=== PATIENT | male | born 2005 | race Caucasian/White ===

== ENCOUNTER 2023-12-20 20:30 | Emergency (ER) | payer OTHER, SELFPAY ==
[2023-12-20 21:03] VITALS: BP 129/72; PULSE 90; RESP 16; TEMP 36.6; O2SAT 96
--- NOTE | 2023-12-20 21:03 | ECG_ITS ---
SEE SCANNED COPY FOR CONFIRMED REPORT MTDD
[2023-12-20 21:13] LABS: Basophils Percent Auto 0.6 % (0.2-1.2); Eosinophils Absolute Auto 0.3 K/mm3 (0-0.3); Eosinophils Percent Auto 3.7 % (0-4.4); Hemoglobin 16.3 g/dL (14.0-18.0); Immature Granulocyte Absolute 0.02 K/mm3 (0.00-0.031); Immature Granulocyte Percent A 0.3 % (0-0.5); Immature Platelet Fraction Pct 30.8 % (0.9-11.2); Lymphocytes Percent Auto 32.5 % (18.3-44.2); Mean Corpuscular Hemoglobin 29.9 pg (26-34); Mean Corpuscular Volume 80.6 fl (80-100); Monocytes Absolute Auto 0.5 K/mm3 (0.1-0.6); Monocytes Percent Auto 7.2 % (2.6-8.5); Neutrophils Absolute Auto 3.8 K/mm3 (1.3-6.7); Neutrophils Percent Auto 55.7 % (45.5-73.1); Platelet Count Result 122 k/mm3 (150-375); Red Blood Count 5.46 M/mm3 (4.6-6.20); Red Cell Distribution Width 11.7 % (11.5-14.5); White Blood Count 6.8 K/mm3 (4.5-10.0)
[2023-12-20 21:37] LABS: Alanine Aminotransferase 27 U/L (6-50); Albumin Level 4.8 g/dL (3.5-5.1); Alkaline Phosphatase 206 U/L (38-126); Anion Gap 15 mmol/L (4-12); Aspartate Amino Transferase 23 U/L (17-59); Bilirubin,Total 0.8 mg/dL (0.2-1.3); Blood Urea Nitrogen 25 mg/dL (9-20); Calcium 9.1 mg/dL (8.4-10.2); Carbon Dioxide 19 mmol/L (22-30); Chloride 90 mmol/L (98-107); Estimated CRCL calculation 119 ml/min; Estimated Glomerular Filt Rate > 60; Glucose 821 mg/dL (65-110); Potassium 4.5 mmol/L (3.4-5.0); Sodium 124 mmol/L (137-145)
[2023-12-20 21:53] LABS: Beta-Hydroxybutyrate/Acetoacetate 2.46 mmol/L (0.02-0.27)
[2023-12-20 22:10] LABS: Fractional Inspired Oxygen 21 %; HCO3 VBG 23.2 mEq/l (24.0-30.0); PCO2 VBG 38.5 mmHg (42.0-48.0); PO2 VBG 73.7 mmHg (35.0-45.0); pH VBG 7.398 (7.300-7.400)
[2023-12-20 22:11] LABS: Device ROOM AIR
[2023-12-20] MEDS: SODIUM CHLORIDE 0.9% IV 3,000 ML 999 ML IV CONT (22:18)
[2023-12-20 22:19] LABS: Hemoglobin A1C 11.4 % (<5.7)
[2023-12-20 22:39] LABS: Appearance Urine Clear (Clear); Bilirubin Urine Negative (Negative); Blood Urine Negative (Negative); Color Urine Yellow (Yellow); Glucose Urine UA 3+ mg/dL (Negative); Ketones Urine 2+ mg/dL (Negative); Leukocyte Esterase Ur Negative LEU/UL (Negative); Nitrate Urine Negative (Negative); Protein Urine Negative (Negative); Urobilinogen Urine 0.2 mg/dL (<2.0); pH Urine 5.5 (5.0-9.0)
[2023-12-20 22:44] LABS: Add Urine Microscopic? NO; Specific Grav Ur 1.031 (1.001-1.035)
[2023-12-20 23:05] VITALS: PULSE 84
[2023-12-20 23:06] VITALS: BP 161/99; PULSE 86; RESP 22; O2SAT 96
[2023-12-20 23:14] LABS: Influenza A QL RT-PCR Negative (Negative); Influenza B QL RT-PCR Negative (Negative); RSV RNA, RT-PCR Negative (Negative); SARS-CoV-2 RNA PCR Negative (Negative)
[2023-12-20 23:22] VITALS: BP 118/87; BP 153/98; PULSE 102; PULSE 74
[2023-12-20 23:23] VITALS: BP 131/77; PULSE 69
[2023-12-21 00:22] VITALS: BP 143/81; PULSE 84; RESP 16; O2SAT 100
[2023-12-21 00:31] LABS: Anion Gap 9 mmol/L (4-12); Blood Urea Nitrogen 20 mg/dL (9-20); Carbon Dioxide 20 mmol/L (22-30); Chloride 100 mmol/L (98-107); Estimated CRCL calculation 132 ml/min; Estimated Glomerular Filt Rate > 60; Glucose 532 mg/dL (65-110); Potassium 4.3 mmol/L (3.4-5.0); Sodium 129 mmol/L (137-145)
--- NOTE | 2023-12-21 00:42 | ED.GENADULT ---
HPI - General Adult General Chief complaint: Dizziness Stated complaint: LIGHTHEADED Time Seen by Provider: 12/20/23 21:48 History of Present Illness HPI narrative: This is a 18-year-old male presenting for dizziness lightheaded. Patient notes that he has had increased thirst and increased urination lately. He has also been losing weight. He has been told that that might be a sign of diabetes. When he got dizzy work he then came to the hospital for re-evaluation. Patient has no history of diabetes. No fever chills chest pain difficulty breathing abdominal pain or urinary symptoms. Related Data Allergies Allergy/AdvReac Type Severity Reaction Status Date / Time No Known Allergies Allergy Verified 12/20/23 22:48 Exam Narrative: APPEARANCE: No apparent distress. Head: atraumatic. EYES: EOMI, NOSE: Atraumatic NECK: Trachea midline RESPIRATORY: No increased rate of breathing CTAB CARDIOVASCULAR: RRR, no peripheral edema ABDOMINAL: Non-distended soft nontender MUSCULOSKELETAl: No obvious deformities NEURO: Alert. Moving 4/4 extremities SKIN:: Warm, dry. Normal color PSYCHIATRIC: Normal affect Course Vital Signs Vital signs: Vital Signs Temperature 97.8 F 12/20/23 21:03 Pulse Rate 90 12/20/23 21:03 Respiratory Rate 16 12/20/23 21:03 Blood Pressure 129/72 12/20/23 21:03 Pulse Oximetry 96 12/20/23 21:03 Oxygen Delivery Room Air 12/20/23 21:03 Temperature 97.8 F 12/20/23 21:03 Pulse Rate 84 12/21/23 00:22 Respiratory Rate 16 12/21/23 00:22 Blood Pressure 143/81 H 12/21/23 00:22 Pulse Oximetry 100 12/21/23 00:22 Oxygen Delivery Room Air 12/20/23 21:03 Medical Decision Making MDM Narrative Medical decision making narrative: -Course: 18-year-old male presenting with elevated glucose. VBG was with normal limits. Initial lab work showed a very slight acidosis and gap of 15. Patient was given 3 L of fluid and his labs were repeated with complete normalization of his anion gap. Patient is very well-appearing has no evidence of DKA/HHS at this time. Discussed admission versus discharge and patient declined admission. The patient is comfortable being discharged to see his primary care physician for which she has an appointment early next week. Patient given return precautions. -DDX includes but is not limited to: Hypoglycemia diabetes, DKA /HHS -Independent interpretation of studies: initial metabolic panel showed a bicarb of 19 and anion gap of 15. Anion gap resolved with 3 L of fluid. Bicarb was 20. Pseudohyponatremia due to elevated glucose. Glucose went from 800->500. Hemoglobin A1c is 11.4. Urine with +3 glucose. Viral swabs negative. -Interventions:3 L ns -Shared decision making / Disposition: discharged. -RX metformin 500 mg b.i.d. Vital Signs Vital Signs: Vital Signs Temperature 97.8 F 12/20/23 21:03 Pulse Rate 90 12/20/23 21:03 Respiratory Rate 16 12/20/23 21:03 Blood Pressure 129/72 12/20/23 21:03 Pulse Oximetry 96 12/20/23 21:03 Oxygen Delivery Room Air 12/20/23 21:03 Temperature 97.8 F 12/20/23 21:03 Pulse Rate 84 12/21/23 00:22 Respiratory Rate 16 12/21/23 00:22 Blood Pressure 143/81 H 12/21/23 00:22 Pulse Oximetry 100 12/21/23 00:22 Oxygen Delivery Room Air 12/20/23 21:03 Lab Data 12/20/23 21:05 12/21/23 00:11 Labs: Lab Results 12/20/23 12/20/23 12/21/23 Range/Units 21:05 22:18 00:11 WBC 6.8 (4.5-10.0) K/mm3 RBC 5.46 (4.6-6.20) M/mm3 Hgb 16.3 (14.0-18.0) g/dL Hct 44.0 (42.0-52.0) % MCV 80.6 (80-100) fl MCH 29.9 (26-34) pg MCHC 37.0 H (32-36) g/dl RDW 11.7 (11.5-14.5) % Plt Count 122 L (150-375) k/mm3 MPV 14.0 H (7.4-10.4) fl Immature Gran % (Auto) 0.3 (0-0.5) % Neut % (Auto) 55.7 (45.5-73.1) % Lymph % (Auto) 32.5 (18.3-44.2) % [place] % (Auto) 7.2 (2.6-8.5) % Eos % (Auto) 3.7
== END 2023-12-21 01:04 | disposition home or self-care (01) ==
PROVIDERS: Emergency Provider Emergency Medicine
DX: E11.65 Type 2 diabetes mellitus with hyperglycemia (principal); Z20.822 Contact with and (suspected) exposure to COVID-19
CPT/HCPCS: 36415; 80048; 80053; 81003; 82010; 82803; 83036; 85025; 85055; 87040; 87637; 93005; 96360; 96361; 99284; J7030

== ENCOUNTER 2024-11-18 01:22 | Emergency (ER) | payer OTHER, SELFPAY ==
[2024-11-18 01:23] VITALS: BP 131/92; PULSE 98; RESP 16; TEMP 36.5; O2SAT 99
--- OUTSIDE RECORDS SUMMARY | 2024-11-18 01:25 | XMS_ITS ---
Author Organization [facility] Address [address] [address] Care Team Providers Care Assistant Track Coach Name Role Phone Cash Ambriz Primary Care Provider Rishi Ag Unavailable [phone] Encounters Encounter Location Date Provider Diagnosis [place] [address] [place] [address] 05/09/2024 Rishi Massey Plan Of Treatment No Information Progress Notes * ZACH BAUERYURIOB:2005 ([age] yo M)Acc No.[id number]:05/09/2024 Patient: LEONOR GRAJEDA Provider: Alyx Massey MD :2005 A ge:18 Y S ex:Male Date:05/09/2024 Address:[address] [id number] Pcp:Cash Ambriz Subjective: * Chief Complaints: * Objective: * Vitals: Assessment: Plan: * Treatment: * Billing Information: * Visit Code: * Procedure Codes: * Electronic signature of Naresh Massey MD on 11/18/2024 at 01:24 AM CDT Sign off status: Pending * Provider: Alyx Massey MD Date: Generated for Jazlyn valladares/Tye/Marisol on: 11/18/2024 01:24 AM CDT
--- OUTSIDE RECORDS SUMMARY | 2024-11-18 01:25 | XMS_ITS | Clinical Summary ---
Author Organization [facility] Address [address] [place] [id number] Care Team Providers Care Installation Tech Name Role Phone Brenda Dangelo MD Primary Care Provider [phone] Allergies No known active allergies Medications No known medications Immunizations Immunization Administration Dates Next Due Dtap (Generic) 03/18/2007, 5,12/01/2004,07/04/2004,03/24 HPV4 (Gardasil) 02/05/2015 Hepatitis A (Generic) 01/02/2008,11/16/2006 Hepatitis B (Generic Peds) 12/01/2006,07/04/2004 ,03/24/2004 MMR (Generic) 01/02/2008,11/16/2006 Meningococcal (Menactra) 11/18/2021,02/05/2015 Pneumococcal (Prevnar 7) 03/18/2007,12/01/2004,1 2003,03/24/2004 Polio Ipv (Generic) 01/02/2008,12/01/2004,2003 Tdap (Generic) 02/05/2015 Varicella (Generic) 02/23/2009,11/29/2004 Social History Tobacco Use Types Packs/Day Years Used Date Smoking Tobacco: Never Smokeless Tobacco: Never Alcohol Use Standard Drinks/Week Comments Never 0 (1 standard drink = 0.6 oz pur e alcohol) PHQ-2 Answer Date Recorded PHQ-2 Score - If the patient scores above 3, please move on to questions 3-9 0 07/15/2021 Sex and Gender Information Value Date Recorded Sex Assigned at Not on file Legal Sex Male 1:45 PM GRAPHIC EDITOR Gender Identity Not on file Sexual Orientation Not on file Last Filed Vital Signs Vital Sign Reading Time Taken Comments Blood Pressure 100/60 07/15/2021 2:44 PM GRAPHIC EDITOR Pulse 91 07/15/2021 2:44 PM GRAPHIC EDITOR Temperature 36.5 C (97.7 F) 07/15/2021 2:44 PM GRAPHIC EDITOR Respiratory Rate 12 07/15/2021 2:44 PM GRAPHIC EDITOR Oxygen Saturation 98% 07/15/2021 2:44 PM GRAPHIC EDITOR Inhaled Oxygen Concentration - - Weight 78.5 kg (173 lb) 07/15/2021 2:44 PM GRAPHIC EDITOR Height 176.5 cm (5' 9.5 ) 07/15/2021 2:44 PM GRAPHIC EDITOR Body Mass Index 25.18 07/15/2021 2:44 PM GRAPHIC EDITOR Plan of Treatment Health Maintenance Due Date Last Done Comments HPV Vaccines (2 - Male 2-dose series) 08/08/2015 02/05/2015 Meningococcal B Vaccine (1 of 2 - Standard) 2019 Hepatitis C 12/06/2021 Annual Physical 07/15/2022 07/15/2021 COVID-19 Vaccine () 03/30/2024 DTaP, Tdap and Td Vaccines (6 - Td or Tdap) 02/05/2025 02/05/2015, 03/18/2007, 01/01/2005, Additional history exists Hepatitis B Vaccines Completed 12/01/2006, 07/04/2004, 03/24/2004 Pneumococcal Vaccine: Pediatrics (0 to 5 Years) and At-Risk Patients (6 to 49 Years) Aged Out 03/18/2007, 12/01/2004, 07/04/2004, Additional history exists No longer eligible based on patient's age to complete this topic Meningococcal Vaccine Completed 11/18/2021, 015 RSV Immunizations Under 20 Months Aged Out No longer eligible based on patient's age to complete this topic Insurance [employer] Care Teams Installation Tech Relationship Specialty Start Date End Date Brenda Dangelo MD PCP - General FAMILY PRACTICE 07/11/21
--- OUTSIDE RECORDS SUMMARY | 2024-11-18 01:25 | XMS_ITS | Data Portability ---
Author Organization [facility] Address [address] [place] [address] Assessment No assessment recorded. Plan of Treatment Reminders Order Date Submit Date Provider Last Modified By Organization Details Last Modified Time Details Appointments None recorded. Lab microalbum in/creatin ine, mass ratio, urine 2023 024 T[facility] (Centralized Electronic Ordering - All Locations), Patient Can Go To The Location Of Their Choice, 08:36:51 unlisted lab - diabetes autoimmune profile 2023 024 T[facility] (Centralized Electronic Ordering - All Locations), Patient Can Go To The Location Of Their Choice, 21:06:59 CMP, serum or plasma 2023 024 [facility] (Centralized Electronic Ordering - All Locations), Patient Can Go To The Location Of Their Choice, 21:06:58 lipid panel, serum 2023 TRE [facility] (Centralized Electronic Ordering - All Locations), Patient Can Go To The Location Of Their Choice, 21:06:58 HbA1c (hemoglobi n A1c), blood 2023 024 T[facility] (Centralized Electronic Ordering - All Locations), Patient Can Go To The Location Of Their Choice, 21:06:59 Referral registered dietitian referral - new diagnosis type 1 diabetes 2023 024 [facility] (Lab), [address] [place], [address], 07/03/202 4 08:56:08 endocrinol ogy referral 2023 024 [facility] , [address] [facility], [facility] [address], [place], [address], 16:21:53 Procedures None recorded. Surgeries None recorded. Imaging None recorded. Medication Orders Novolog FlexPen U-100 Insulin aspart 100 unit/mL (3 mL) subcutaneo us [address] [id number], [address] [place], [address], 13:09:26 Lantus Solostar U-100 Insulin 100 unit/mL (3 mL) subcutaneo us pen [address] [facility][id number], [address] [place], [address], 15:07:39 Patient TargetsNo targets recorded. Patient Instructions Encounter Date Encounter Id Patient Instructions Last Modified By Organization Details Last Modified Time 12/31/2023 [id number] A healthy lifestyle: care instructions Not available 12/31/2023 14:39:01 Discussed dietar y and lifestyle modifications in great detail. Educated on pathophysiology, sequelae, monitoring and treatment in detail. Pt's questions answered. Patient was given education packet and instructed to call/rtc with any questions. Keep follow up apt. Not available 01/07/2024 09:05:35 01/07/2024 [id number] A healthy lifestyle: care instructions Not available 01/07/2024 14:45:32 Quitting Tobacco : Care Instructions Not available 01/07/2024 14:45:32 Reason for Referral Endocrinology Referral for D iabetes mellitus Referring Physician: [facility], Encounter Date: 12/31/2023 Registered Dietitian Referra l for Type 1 diabetes mellitus new diagnosis type 1 diabetes Referring Physician: [facility], Encounter Date: 01/07/2024 Results Created Date Observation Date Name Description Value Unit Range Abnormal Flag Note LastModifiedBy Organization Detail LastModifiedTime 12/31/19 24 01/01/2024 LIPID PANEL cholesterol, total 186 mg/dL 100-19 9 Not Available [facility] [address] [place], [address], 01/10/2024 21:06:58 12/31/19 24 01/01/2024 LIPID PANEL triglyceride s 226 mg/dL 0-149 above high normal Not Available [facility] [address] [place], [address], 01/10/2024 21:06:58 12/31/19 24 01/01/2024 LIPID PANEL HDL cholesterol 29 mg/dL >39 below low normal Not Available [facility] [address] [place], [address], 01/10/2024 21:06:58 12/31/19 24 01/01/2024 LIPID PANEL VLDL cholesterol irma 40 mg/dL 5-40 Not Available [facility] [address] [place], [address], 01/10/2024 21:06:58 12/31/19 24 01/01/2024 LIPID PANEL LDL chol calc (nih) 117 mg/dL 0-99 above high normal Not Available [facility] [address] [place], [address], 01/10/2024 21:06:58 12/31/19 24 01/01/2024 COMP. METAB OLIC PANEL (14) glucose 308 mg/dL 70-99 above high normal Not Available [facility] [address] [place], [address], 01/10/2024 21:06:58 12/31/19 24 01/01/2024 COMP. METAB OLIC PANEL (14) BUN 12 mg/dL 6-20 Not Available [facility] [address] [place], [address], 01/10/2024 21:06:58 12/31/19 24 01/01/2024 COMP. METAB OLIC PANEL (14) creatinine 0.98 mg/dL 0.76-1 .27 Not Available [facility] [address] [place], [address], 01/10/2024 21:06:58 12/31/19 24 01/01/2024 COMP. METAB OLIC PANEL (14) eGFR 113 mL/mi n/1.7 3 >59 Not Available [facility] [address] [place], [address], 01/10/2024 21:06:58 12/31/19 24 01/01/2024 COMP. METAB OLIC PANEL (14) BUN/creatini ne ratio 12 9-20 Not Available [facility] [address] [place], [address], 01/10/2024 21:06:58 12/31/19 24 01/01/2024 COMP. METAB OLIC PANEL (14) sodium 138 mmol/ L 134-14 4 Not Available [facility] [address] [place], [address], 01/10/2024 21:06:58 12/31/19 24 01/01/2024 COMP. METAB OLIC PANEL (14) potassium 4.3 mmol/ L 3.5-5. 2 Not Available [facility] [address] [place], [address], 01/10/2024 21:06:58 12/31/19 24 01/01/2024 COMP. METAB OLIC PANEL (14) chloride 99 mmol/ L 96-106 Not Available [facility] [address] [place], [address], 01/10/2024 21:06:58 12/31/19 24 01/01/2024 COMP. METAB OLIC PANEL (14) carbon dioxide, total 23 mmol/ L 20-29 Not Available [facility] [address] [place], [address], 01/10/2024 21:06:58 12/31/19 24 01/01/2024 COMP. METAB OLIC PANEL (14) calcium 9.3 mg/dL 8.7-10 .2 Not Available [facility] [address] [place], [address], 01/10/2024 21:06:58 12/31/19 24 01/01/2024 COMP. METAB OLIC PANEL (14) protein, total 6.4 g/dL 6.0-8. 5 Not Available [facility] [address] [place], [address], 01/10/2024 21:06:58 12/31/19 24 01/01/2024 COMP. METAB OLIC PANEL (14) albumin 4.5 g/dL 4.3-5. 2 Not Available [facility] [address] [place], [address], 01/10/2024 21:06:58 12/31/19 24 01/01/2024 COMP. METAB OLIC PANEL (14) globulin, total 1.9 g/dL 1.5-4. 5 Not Available [facility] [address] [place], [address], 01/10/2024 21:06:58 12/31/19 24 01/01/2024 COMP. METAB OLIC PANEL (14) A/G ratio 2.4 1.2-2. 2 above high normal Not Available [facility] [address] [place], [address], 01/10/2024 21:06:58 12/31/19 24 01/01/2024 COMP. METAB OLIC PANEL (14) bilirubin, total 0.6 mg/dL 0.0-1. 2 Not Available [facility] [address] [place], [address], 01/10/2024 21:06:58 12/31/19 24 01/01/2024 COMP. METAB OLIC PANEL (14) alkaline phosphatase 167 IU/L 51-125 above high normal Not Available [facility] [address] [place], [address], 01/10/2024 21:06:58 12/31/19 24 01/01/2024 COMP. METAB OLIC PANEL (14) AST (SGOT) 13 IU/L 0-40 Not Available [facility] [address] [place], [address], 01/10/2024 21:06:58 12/31/19 24 01/01/2024 COMP. METAB OLIC PANEL (14) ALT (SGPT) 18 IU/L 0-44 Not Available [facility] [address] [place], [address], 01/10/2024 21:06:58 12/31/19 24 01/03/2024 DIABE KENA AUTOI MMUNE PROFI LE type 1 diabetes interpretati on COMMEN T Publi shed posit ivity rates for diabe kena autoa ntibo dies in new-o nset Type 1 Diabe kena patie nts liste d below are based on the combi angi noé sis of CASEY-6 5, ICA 512, Insul in Antib odies , and ZNT8 Antib odies . The combi angi noé sis has a 98% autoi mmuni ty detec tion rate, with 1.8% of Type 1 diabe tic indiv idual s remai dinah as autoa ntibo dy-ne gativ e. Posit ivity rate in new-o nset Type 1 Diabe kena patie nts: CASEY-6 5 Antib odies = 68% posit donny IA-2/ ICA 512 Antib odies = 72% posit donny Insul in Antib odies = 55% posit donny ZNT8 Antib odies = 63% posit donny An incre ase in the numbe r of posit donny antib odies is assoc iated with a highe r likel ihood of Type 1 Diabe kena. Less than 3% of Type 2 Diabe tics have posit donny antib odies .(1) Sivakumar parrish et al. PNAS. 2007; 104(4 3):17 [phone]. Not Available [facility] [address] [place] [address], [address], 01/10/2024 21:06:59 12/31/19 24 01/07/2024 DIABE KENA AUTOI MMUNE PROFI LE anti casey 65 antibodies 17 U/mL above high normal Refer ence Range : <5.0 Negat donny > or = 5.0 Posit donny Not Available [facility] [address] [place] [address], [address], 01/10/2024 21:06:59 12/31/19 24 01/08/2024 DIABE KENA AUTOI MMUNE PROFI LE insulin antibodies <5.0 This test is also known as insul in autoa ntibo dy or IAA. This test was devmarilynn quick and its perfo rmanc e abdirahman cteri stics deter mined by [facility]. It has not been clear ed or appro santosh by the Food and Drug Admin istra tion. Refer ence Range : <5.0 Negat donny > or = 5.0 Posit donny Not Available [facility] [address] [place], [address], 01/10/2024 21:06:59 12/31/19 24 01/09/2024 DIABE KENA AUTOI MMUNE PROFI LE znt8 antibodies 374 U/mL above high normal Refer ence Range : All Ages: <15 Negat donny > or =15 Posit donny Not Available [facility] [address] [place], [address], 01/10/2024 21:06:59 12/31/19 24 01/10/2024 DIABE KENA AUTOI MMUNE PROFI LE ia-2 autoantibodi es <7.5 U/mL Refer ence Range : <7.5 Negat donny > or = 7.5 Posit donny Not Available [facility] [address] [place], [address], 01/10/2024 21:06:59 12/31/19 24 01/01/2024 HEMOG LOBIN A1C hemoglobin A1C 12.1 % 4.8-5. 6 above high normal Predi abete s: 5.7 - 6.4 Diabe kena: >6.4 Glyce emilee contr ol for adult s with diabe kena: <7.0 Not Available [facility] [address] [place], [address], 01/10/2024 21:06:59 01/07/20 24 01/08/2024 ALBUM IN/CR EAT RATIO , VIDA Pandya UR creatinine, urine 70.3 mg/dL notest ab. Not Available [facility] ([facility]) [address] [facility], [place], [address], 01/08/2024 08:36:51 01/07/20 24 01/08/2024 ALBUM IN/CR EAT RATIO , VIDA M UR albumin, urine <3.0 ug/mL notest ab. Not Available [facility] ([facility]) [address] [place], [address], 01/08/2024 08:36:51 01/07/20 24 01/08/2024 ALBUM IN/CR EAT RATIO , RANDO M UR alb/creat ratio <4 Gifty l: 0 - 29 Moder ately incre ased: 30 - 300 Sever anjelica incre ased: >300 Not Available [facility] ([facility]) [address] [place], [address], 01/08/2024 08:36:51 Result Notes None recorded. Problems Name Problem SNOMED Code Status Onset Date Resolution Date Notes Provider Name and Address Organization Details Recorded Time Type 1 diabetes mellitus 43999588 Active 024 Cash Ambriz PA-C Attn: Accounting ,[address] [facility], [place], [address] , [facility] 4 08:53:14 Problem Notes None recorded. Medical Equipment None Reported. Allergies No known drug allergies Medications Name Sig Start Date Stop Date Status Note LastModified by Organization Details LastModified Time metformin 500 mg tablet Take 1 tablet twice a day by oral route as needed. 2023 active Not Available Not Available Not Avai lable FreeStyle Lancets 28 gauge USE TO CHECK 3 TIMES A DAY active Not Available Not Available Not Available Novolog FlexPen U-100 Insulin aspart 100 unit/mL (3 mL) subcutaneous INJECT 4 UNITS 3 TIMES A DAY BY SUBCUTANEOU S ROUTE WITH MEAL(S). active Not Available Not Available No t Available FreeStyle Lite Meter kit USE TO CHECK BLOOD GLUCOSE 3 TIMES A DAY active Not Available Not Available Not Available FreeStyle Lite Strips USE TO TEST BLOOD SUGAR 3 TIMES A DAY active Not Available Not Available No t Available Lantus Solostar U-100 Insulin 100 unit/mL (3 mL) subcutaneous pen INJECT 10 UNITS EVERY DAY BY SUBCUTANEOU S ROUTE FOR 30 DAYS. active Not Available Not Available No t Available BD Ultra-Fine Micro Pen Needle 32 gauge x 1/4 USE TO INJECT INSULIN SUBCUTANEOU SLY DAILY active Not Available Not Available No t Available Vitals Date Recorded Body height Body mass index (BMI) Body mass index (BMI) Percentile per age and sex Body weight Oxygen saturation Oxygen saturation in Arterial blood by Pulse oximetry Heart rate Respiratory rate Systolic blood pressure Diastolic blood pressure Provider Name and Address Organization Details Last Updated DateTime 4 177.8 cm 26.9 kg/m2 84 % 08602.8 2 g 98 % 98 % 94 /min 18 /min 124 mm[Hg] 70 mm[Hg] Casandra Best MA [place] [facility] 4 14:24:02 Date Recorded Body height Body mass index (BMI) Percentile per age and sex Body mass index (BMI) Body weight Oxygen saturation Oxygen saturation in Arterial blood by Pulse oximetry Heart rate Respiratory rate Systolic blood pressure Diastolic blood pressure Provider Name and Address Organization Details Last Updated DateTime 4 177.8 cm 84 % 27 kg/m2 70408.8 2 g 98 % 98 % 82 /min 16 /min 126 mm[Hg] 72 mm[Hg] Casandra Best MA [facility] 14:38:54 Social History Question Answer Notes LastModified by Organizat ion Details LastModified Time Tobacco Smoking Status Current Every Day Smoker Casandra Best MA null, [facility] 12/31/2023 14:26:10 Do You Have An Advance Directive? No Information not available 12/31/2023 What Is Your Level Of Alcohol Consumption? Occasional Information not available 12/31/2023 Are You Blind Or Do You Have Difficulty Seeing? No Information not available 12/31/2023 What Is Your Level Of Caffeine Consumption? Moderate Information not available 12/31/2023 In The 14 Days Before Symptom Onset, Have You Had Close Contact With A Laboratory-confir med COVID-19 While That Case Was Ill? No Information not available 12/31/2023 In The 14 Days Before Symptom Onset, Have You Had Close Contact With A Person Who Is Under Investigation For COVID-19 While That Person Was Ill? No Information not available 12/31/2023 Have You Been To An Area Known To Be High Risk For COVID-19? No Information not available 12/31/2023 Are You Currently Employed? Yes Information not available 12/31/2023 Are You Deaf Or Do You Have Serious Difficulty Hearing? No Information not available 12/31/2023 What Type Of Diet Are You Following? REGULAR Information not available 12/31/2023 Do You Or Have You Ever Used E-cigarettes Or Vape? Current User Of Electronic Cigarettes Information not available 12/31/2023 Are There Any Guns Present In Your Home? No Information not available 12/31/2023 What Was The Date Of Your Most Recent Tobacco Screening? 01/07/2024 Information not available 01/07/2024 How Many Children Do You Have? 0 Information not available 12/31/2023 What Is Your Relationship Status? Single Information not available 12/31/2023 Do You Use Your Seat Belt Or Car Seat Routinely? Yes Information not available 12/31/2023 Are You Sexually Active? Yes Information not available 12/31/2023 Do You Have Smoke And Carbon Monoxide Detectors In Your Home? Yes Information not available 12/31/2023 Are You Passively Exposed To Smoke? No Information no t available 12/31/2023 Do You Or Have You Ever Used Smokeless Tobacco? Never Used Smokeless Tobacco Information not available 12/31/2023 Do You Feel Stressed (tense, Restless, Nervous, Or Anxious, Or Unable To Sleep At Night)? [id number] Information not available 12/31/2023 Do You Use Any Illicit Or Recreational Drugs? No Information not available 12/31/2023 Do You Use Sunscreen Routinely? Yes Information not available 12/31/2023 Has Tobacco Cessation Counseling Been Provided? Yes Information not available 12/31/2023 On What Date Was Tobacco Cessation Counseling Provided? 01/07/2024 Information not available 01/07/2024 Do You Or Have You Ever Used Any Other Forms Of Tobacco Or Nicotine? Yes Information not available 12/31/2023 How Many Years Have You Used E-cigarettes Or Vape? 2 Information not available 12/31/2023 Sex: Unknown Functional Status Question Answer Note LastModified by Organizat ion Details LastModified Time Are you able to care for yourself? Yes Information not available 12/31/2023 What is your exercise level? Occasional Information not available 12/31/2023 Mental Status None recorded. Family History Relationship Description Onset Age of this Age Resolved Age Notes LastModified by Organization Details LastModified Time Father No current problems or disability Not available 09/2023 14:25:12 Mother No current problems or disability Not available 09/2023 14:25:12 Medical History Condition Response Coronary Artery Disease N Other N High Blood Pressure N Atrial Fibrillation N Thyroid Problems N Kidney or Bladder Problems N GI Problems N Depression N COPD N Blood Clots N Skin Problems N Eating Disorder N Anemia N Heart Attack (IA) N Anxiety Disorder N Diabetes Y Muscle, Joint, or Bone Problems N Arthritis N Seizures/Epilepsy N Acid Reflux (GERD) N Cancer N Stroke N Asthma N Allergies N ADHD N Substance Abuse N High Cholesterol N Hepatitis N Liver Disease N Schizophrenia N Headaches N Heart Failure N Osteoporosis N Past Encounters Encounter ID Performer Location Encounter Start Date Encounter Closed Date Diagnosis/Indication Diagnosis SNOMED-CT Code Diagnosis ICD10 Code Diagnosis Note [id number] TEMITOPE Falk [address] [place] [id number] 12/31/2023 14:10:33 12/31/2023 15:10:23 Diabetes mellitus 11550516 E11.65 12/31/23: new patient, ED follow up: pt reports developed polyuria and polydipsia over past several weeks. became dizzy 10 days ago and presented to ED, where found to be grossly hyperglyce emilee and dx'ed with diabetes. labs otherwise reportedly reassuring and no mention was made of DKA. discharged with MTF script and told to establish with PCP. no significan t FH DM.pt reports has been trying to follow diabetic diet since that time and reports some improvemen t to polyuria and polydipsia . taking MTF with only mild GI symptoms.e xam is reassuring . given age and lack of other risk factors, very much suspect DM1 over DM2 and will go ahead and switch MTF to basal insulin and will obtain diabetic autoimmune profile and go ahead and initiate endocrinol ogy referral, as well. Log BGs BiD x1 week and then RTC to titrate and go over results. pt and mother comfortabl e with plan. Overweight 375132726 E66 .3 Depression screening 171 020095 Z13.31 [id number] TEMITOPE Falk [address] [place] [id number] 01/07/2024 14:32:59 01/07/2024 15:12:33 Overweight 290489126 E66.3 Smoker 72836460 F17.200 Diabetes mellitus 023511 09 E11.65 Depression screening 171 715277 Z13.31 Type 1 karlene betes mellitus 87974957 E10.65 01/11/24: >>GAD65 and ZNT8 positive, with insulin ab and ia-2 negative. appears to be DM1.0.3 units/kg/d ay x 85 kg = 25.5 (rounded 26) unit TDD.14 units basal / 26 units = 53% basal, which is ok.remaind er 26-14 = 12 units. 12units /3 meals = 4unit prandial dose.will order prandial insulinupt odate carb counting info given. provided education regarding prandial insulin dosing and timing.spo ke with mother, has endo appt in april. 01/07/24: compliant with basal insulin with some improvemen t in BGs, but remains hyperglyce emilee. a1c 12.1. DM1 autoantibo dies pending. discussed with patient in detail and will go ahead and bump lantus to 14 units and will await ab panel. 12/31/23: new patient, ED follow up: pt reports developed polyuria and polydipsia over past several weeks. became dizzy 10 days ago and presented to ED, where found to be grossly hyperglyce emilee and dx'ed with diabetes. labs otherwise reportedly reassuring and no mention was made of DKA. discharged with MTF script and told to establish with PCP. no significan t FH DM.pt reports has been trying to follow diabetic diet since that time and reports some improvemen t to polyuria and polydipsia . taking MTF with only mild GI symptoms.e xam is reassuring . given age and lack of other risk factors, very much suspect DM1 over DM2 and will go ahead and switch MTF to basal insulin and will obtain diabetic autoimmune profile and go ahead and initiate endocrinol ogy referral, as well. Log BGs BiD x1 week and then RTC to titrate and go over results. pt and mother comfortabl e with plan. Health Concerns Section Related Observation LastModified by Organization Detai ls LastModified Time None Recorded Concern Status LastModified by Organization Details LastModified Time None Recorded Advance Directives Directive N: Payers Encounter Date Sequence Insurance Name Policy Number Policy Nye Covered Member ID Nye Member ID Guarantor Name 12/31/2023 1 [employer] - [employer] ( SUPPLEMENT) Patrick Alvarez [id number] Dina Alvarez 01/07/2024 1 [facility] PRIOR TO 07/30/2024 - [employer] () Patrick Alvarez [id number] Dina Alvarez Notes Date Note Type Note Provider Name and Address Organization Details Recorded Time 12/31/2023 text/html Pt presents to establish care and for ED follow up: PMH stated as unremarkable. pt reports developed polyuria and polydipsia over past several weeks. became dizzy 10 days ago and presented to ED, where found to be grossly hyperglycemic and dx'ed with diabetes. labs otherwise reportedly reassuring and no mention was made of DKA. discharged with MTF script and told to establish with PCP. no significant FH DM.pt reports has been trying to follow diabetic diet since that time and reports some improvement to polyuria and polydipsia. taking MTF with only mild GI symptoms. denies confusion, tremor, abdominal pain, SAMUELS, vision changes, syncope, seizure. Cash Ambriz PA-C Attn: Accounting,[address] [place], [address], [facility] 01/07/2024 09:06:22 01/07/2024 text/html Pt presents for one week follow up of diabetes. DM1 ab panel still pending. taking 10 units basal insulin qD without complication. hyperglycemia persists. has been compliant with diet. denies symptoms at this time. Pt denies fever, chills, headaches, syncope, chest pain, shortness of breath, abdominal pain, NVD, joint problems, skin problems. Cash Ambriz PA-C Attn: Accounting,[address] [place], [address], [facility] 01/11/2024 13:25:33
--- OUTSIDE RECORDS SUMMARY | 2024-11-18 01:25 | XMS_ITS | Patient Health Record ---
Author Organization [facility] Address [address] [address] Care Team Providers Care Children Counselor Name Role Phone Cash Ambriz Primary Care Provider Rishi Ag Unavailable [phone] Reason For Referral No Information Plan Of Treatment No Information
--- NOTE | 2024-11-18 02:36 | ED_ITS ---
HPI - General Adult General Chief complaint: Unspecified Stated complaint: need work note Time Seen by Provider: 11/18/24 02:29 Source: patient Mode of arrival: ambulatory Limitations: no limitations History of Present Illness HPI narrative: This is a 18-year-old male with PMH insulin-dependent diabetes who presents to the ED for chief complaint of N/V/D over the last couple of days. States that he needs a work note for return to work. States that he is not taking his insulin as often as he is supposed to. States his last A1c was 14. States that he did have a small bout of rectal bleeding the other day after diarrhea. Denies abdominal pain, urinary symptoms, fevers, chills Related Data Allergies Allergy/AdvReac Type Severity Reaction Status Date / Time No Known Allergies Allergy Verified 12/20/23 22:48 Review of Systems 2 Review of Systems: All systems as dictated in HPI Exam 2 Narrative: GENERAL: Well-appearing, well-nourished, and in no acute distress. HEAD: Normocephalic, atraumatic. EYES: PERRLA and EOMI. ENT: Nares clear, no rhinorrhea or epistaxis. Mucous membranes moist. Oropharynx without tonsillar hypertrophy exudate or other lesions. NECK: Supple. No adenopathy or masses. CHEST: No respiratory distress. Clear to auscultation. No wheezes rales or rhonchi HEART: Regular rate and rhythm. No murmur heard. Normal peripheral pulses. ABDOMEN: Soft, nontender, nondistended, normal active bowel sounds. MSK: Normal range of motion. No edema. SKIN: Warm, dry, no rash. NEURO: Alert and oriented x4. No focal deficits. PSYCH: Normal mood and affect. Course Vital Signs Vital signs: Vital Signs Temperature 97.7 F 11/18/24 01:23 Pulse Rate 98 11/18/24 01:23 Respiratory Rate 16 11/18/24 01:23 Blood Pressure 131/92 H 11/18/24 01:23 Pulse Oximetry 99 11/18/24 01:23 Oxygen Delivery Room Air 11/18/24 01:23 Temperature 97.7 F 11/18/24 01:23 Pulse Rate 98 11/18/24 01:23 Respiratory Rate 16 11/18/24 03:11 Blood Pressure 131/92 H 11/18/24 01:23 Pulse Oximetry 99 11/18/24 01:23 Oxygen Delivery Room Air 11/18/24 01:23 Medical Decision Making MDM Narrative Medical decision making narrative: This is a 18-year-old male who presents to the ED for chief complaint of N/V/D over the past couple of days and needing a work note. Vitals are normal. Exam unremarkable. Patient admits to being noncompliant with insulin for diabetic medication. Lab work showing elevated blood sugar in the 330s on arrival. No evidence of DKA. Potassium slightly low 3.3 so will be repleted with KCl. UA shows glucose but no evidence of infection. Patient was given fluids, insulin with glucose recheck at 200. Patient will be discharged in stable condition. Supportive measures discussed and return precautions given. Patient is understanding and agreeable with plan for discharge with PCP follow-up. Vital Signs Vital Signs: Vital Signs Temperature 97.7 F 11/18/24 01:23 Pulse Rate 98 11/18/24 01:23 Respiratory Rate 16 11/18/24 01:23 Blood Pressure 131/92 H 11/18/24 01:23 Pulse Oximetry 99 11/18/24 01:23 Oxygen Delivery Room Air 11/18/24 01:23 Temperature 97.7 F 11/18/24 01:23 Pulse Rate 98 11/18/24 01:23 Respiratory Rate 16 11/18/24 03:11 Blood Pressure 131/92 H 11/18/24 01:23 Pulse Oximetry 99 11/18/24 01:23 Oxygen Delivery Room Air 11/18/24 01:23 Lab Data 11/18/24 03:18 11/18/24 03:18 Labs: Lab Results 11/18/24 11/18/24 11/18/24 Range/Units 03:08 03:18 03:48 WBC 6.7 (4.5-10.0) K/mm3 RBC 5.16 (4.6-6.20) M/mm3 Hgb 15.4 (14.0-18.0) g/dL Hct 44.1 (42.0-52.0) % MCV 85.5 (80-100) fl MCH 29.8 (26-34) pg MCHC 34.9 (32-36) g/dl RDW 11.8 (11.5-14.5) % Plt Count 123 L (150-375) k/mm3 MPV 14.0 H (7.4-10.4) fl Immature Gran % (Auto) 0.1 (0-0.5) % Neut % (Auto) 52.2 (45.5-73.1) % Lymph % (Auto) 35.9 (18.3-44.2) % Clare % (Auto) 8.3 (2.6-8.5) % Eos % (Auto) 2.8 (0-4.4) % Baso % (Auto) 0.7 (0.2-1.2) % Lymph # (Auto) 2.41 (0.9-3.2) K/mm3 Clare # (Auto) 0.6 (0.1-0.6) K/mm3 Eos # (Auto) 0.2 (0-0.3) K/mm3 Baso # (Auto) 0.1 (0.0-0.1) K/mm3 Abs Immat Gran (auto) 0.01 (0.00-0.031) K/mm3 Absolute Neuts (auto) 3.5 (1.3-6.7) K/mm3 Absolute Nucleated RBC 0.000 (0.0-0.012) K/mm3 Nucleated RBC % 0.0 (0.0-0.2) % % Immature Plt Fraction 24.1 H (0.9-11.2) % Sodium 136 L (137-145) mmol/L Potassium 3.3 L (3.4-5.0) mmol/L Chloride 100 (98-107) mmol/L Carbon Dioxide 24 (22-30) mmol/L Anion Gap 12 (4-12) mmol/L BUN 11 D (9-20) mg/dL Creatinine 0.70 (0.7-1.3) mg/dL Estim Creat Clear Calc 150 ml/min Estimated GFR > 60 (59 - ) Glucose 337 H (65-110) mg/dL POC Capillary Glucose 308 H (65-105) mg/dl Calcium 9.2 (8.4-10.2) mg/dL Magnesium 1.9 (1.6-2.3) mg/dL Total Bilirubin 0.4 (0.2-1.3) mg/dL AST 18 (17-59) U/L ALT 21 (6-50) U/L Alkaline Phosphatase 135 H (38-126) U/L Total Protein 7.0 (6.3-8.2) g/dL Albumin 4.2 (3.5-5.1) g/dL Urine Color Yellow (Yellow) Urine Appearance Clear (Clear) Urine pH 6.5 (5.0-9.0) Ur Specific [place] 1.041 H (1.001-1.035) Urine Protein Negative (Negative) mg/dL Urine Glucose (UA) 3+ H (Negative) mg/dL Urine Ketones 2+ H (Negative) mg/dL Ur Blood (Man) Negative (Negative) Urine Nitrate Negative (Negative) Urine Bilirubin Negative (Negative) Urine Urobilinogen 0.2 (<2.0) mg/dL Leukocyte Esterase Rfl Negative (Negative) ADEN/UL Influenza A (RT-PCR) Pending Influenza B (RT-PCR) Pending RSV (RT-PCR) Pending SARS-CoV-2 RNA (RT-PCR) Pending 11/18/24 Range/Units 04:38 WBC (4.5-10.0) K/mm3 RBC (4.6-6.20) M/mm3 Hgb (14.0-18.0) g/dL Hct (42.0-52.0) % MCV (80-100) fl MCH (26-34) pg MCHC (32-36) g/dl RDW (11.5-14.5) % Plt Count (150-375) k/mm3 MPV (7.4-10.4) fl Immature Gran % (Auto) (0-0.5) % Neut % (Auto) (45.5-73.1) % Lymph % (Auto) (18.3-44.2) % Clare % (Auto) (2.6-8.5) % Eos % (Auto) (0-4.4) % Baso % (Auto) (0.2-1.2) % Lymph # (Auto) (0.9-3.2) K/mm3 Clare # (Auto) (0.1-0.6) K/mm3 Eos # (Auto) (0-0.3) K/mm3 Baso # (Auto) (0.0-0.1) K/mm3 Abs Immat Gran (auto) (0.00-0.031) K/mm3 Absolute Neuts (auto) (1.3-6.7) K/mm3 Absolute Nucleated RBC (0.0-0.012) K/mm3 Nucleated RBC % (0.0-0.2) % % Immature Plt Fraction (0.9-11.2) % Sodium (137-145) mmol/L Potassium (3.4-5.0) mmol/L Chloride (98-107) mmol/L Carbon Dioxide (22-30) mmol/L Anion Gap (4-12) mmol/L BUN (9-20) mg/dL Creatinine (0.7-1.3) mg/dL Estim Creat Clear Calc ml/min Estimated GFR (59 - ) Glucose (65-110) mg/dL POC Capillary Glucose Pending (65-105) mg/dl Calcium (8.4-10.2) mg/dL Magnesium (1.6-2.3) mg/dL Total Bilirubin (0.2-1.3) mg/dL AST (17-59) U/L ALT (6-50) U/L Alkaline Phosphatase (38-126) U/L Total Protein (6.3-8.2) g/dL Albumin (3.5-5.1) g/dL Urine Color (Yellow) Urine Appearance (Clear) Urine pH (5.0-9.0) Ur Specific [place] (1.001-1.035) Urine Protein (Negative) mg/dL Urine Glucose (UA) (Negative) mg/dL Urine Ketones (Negative) mg/dL Ur Blood (Man) (Negative) Urine Nitrate (Negative) Urine Bilirubin (Negative) Urine Urobilinogen (<2.0) mg/dL Leukocyte Esterase Rfl (Negative) ADEN/UL Influenza A (RT-PCR) Influenza B (RT-PCR) RSV (RT-PCR) SARS-CoV-2 RNA (RT-PCR) Discharge Plan Discharge Clinical Impression: Hyperglycemia due to type 1 diabetes mellitus Patient Disposition: Home Condition: Stable Instructions: Antibiotic Form Additional Instructions: Your exam today does show evidence of high blood sugar. Please make sure that you for monitoring and managing your blood sugar more closely so that you do not go into DKA. If you have any new or worsening symptoms please return to the ER for further evaluation. Patient Language: Georgian Prescriptions: No Action metformin 500 mg tablet 500 mg PO BID Qty: 60 0RF Follow-up/Referrals: UNKNOWN,DOCTOR [Primary Care Provider] - Stand Alone Forms: Work/School Release IP Time of Disposition: 04:20
--- NOTE | 2024-11-18 03:09 | PC.NURSE ---
Pt presents to ED c/o 08/08 abdominal pain, and nausea this AM. Pt states he is not compliant with insulin administration, BG upon being roomed 308. IV inserted and made aware need urine sample.
[2024-11-18 03:11] VITALS: RESP 16
[2024-11-18 03:25] LABS: Glucose Point of Care 308 mg/dl (65-105)
[2024-11-18] MEDS: LACTATED RINGERS 1,000 ML 999 ML IV CONT ×2 (03:32→04:25)
[2024-11-18] MEDS: INSULIN HUMAN REGULAR (*BKC) 100 UNITS/ML IV PUSH (03:32)
[2024-11-18 04:08] LABS: Basophils Absolute Auto 0.1 K/mm3 (0.0-0.1); Basophils Percent Auto 0.7 % (0.2-1.2); Eosinophils Absolute Auto 0.2 K/mm3 (0-0.3); Eosinophils Percent Auto 2.8 % (0-4.4); Hematocrit 44.1 % (42.0-52.0); Hemoglobin 15.4 g/dL (14.0-18.0); Immature Granulocyte Absolute 0.01 K/mm3 (0.00-0.031); Immature Granulocyte Percent A 0.1 % (0-0.5); Immature Platelet Fraction Pct 24.1 % (0.9-11.2); Lymphocytes Absolute Auto 2.41 K/mm3 (0.9-3.2); Lymphocytes Percent Auto 35.9 % (18.3-44.2); Mean Corpuscular HGB Conc 34.9 g/dl (32-36); Mean Corpuscular Hemoglobin 29.8 pg (26-34); Mean Corpuscular Volume 85.5 fl (80-100); Monocytes Absolute Auto 0.6 K/mm3 (0.1-0.6); Monocytes Percent Auto 8.3 % (2.6-8.5); Neutrophils Absolute Auto 3.5 K/mm3 (1.3-6.7); Neutrophils Percent Auto 52.2 % (45.5-73.1); Platelet Count Result 123 k/mm3 (150-375); Red Blood Count 5.16 M/mm3 (4.6-6.20); Red Cell Distribution Width 11.8 % (11.5-14.5); White Blood Count 6.7 K/mm3 (4.5-10.0)
[2024-11-18 04:09] LABS: Add Urine Microscopic? NO; Appearance Urine Clear (Clear); Bilirubin Urine Negative (Negative); Blood Urine Negative (Negative); Color Urine Yellow (Yellow); Glucose Urine UA 3+ mg/dL (Negative); Ketones Urine 2+ mg/dL (Negative); Leukocyte Esterase Ur Negative LEU/UL (Negative); Nitrate Urine Negative (Negative); Protein Urine Negative (Negative); Specific Grav Ur 1.041 (1.001-1.035); Urobilinogen Urine 0.2 mg/dL (<2.0); pH Urine 6.5 (5.0-9.0)
--- OUTSIDE RECORDS SUMMARY | 2024-11-18 04:13 | XMS_ITS | Clinical Summary ---
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 [employer] Gender Identity Not on file Sexual Orientation Not on file Last Filed Vital Signs Vital Sign Reading Time Taken Comments Blood Pressure 100/60 07/15/2021 2:44 PM GUN F[employer]IL[employer]ER Pulse 91 07/15/2021 2:44 PM GUN FERTILIZER Temperature 36.5 C (97.7 F) 07/15/2021 2:44 PM GUN FERTILIZER Respiratory Rate 12 07/15/2021 2:44 PM GUN FERTILIZER Oxygen Saturation 98% 07/15/2021 2:44 PM GUN FERTILIZER Inhaled Oxygen Concentration - - Weight 78.5 kg (173 lb) 07/15/2021 2:44 PM GUN FERTILIZER Height 176.5 cm (5' 9.5 ) 07/15/2021 2:44 PM GUN FERTILIZER Body Mass Index 25.18 07/15/2021 2:44 PM GUN FERTILIZER Plan of Treatment Health Maintenance Due Date [...] patient's age to complete this topic Insurance [facility] Care Teams Space And Storage Clerk Relationship Specialty Start Date End Date Brenda Dangelo MD PCP - General FAMILY PRACTICE 07/11/21
[2024-11-18 04:18] LABS: Alanine Aminotransferase 21 U/L (6-50); Albumin Level 4.2 g/dL (3.5-5.1); Alkaline Phosphatase 135 U/L (38-126); Anion Gap 12 mmol/L (4-12); Aspartate Amino Transferase 18 U/L (17-59); Bilirubin,Total 0.4 mg/dL (0.2-1.3); Blood Urea Nitrogen 11 mg/dL (9-20); Calcium 9.2 mg/dL (8.4-10.2); Carbon Dioxide 24 mmol/L (22-30); Chloride 100 mmol/L (98-107); Estimated CRCL calculation 150 ml/min; Estimated Glomerular Filt Rate > 60; Glucose 337 mg/dL (65-110); Magnesium 1.9 mg/dL (1.6-2.3); Potassium 3.3 mmol/L (3.4-5.0); Sodium 136 mmol/L (137-145)
[2024-11-18] MEDS: POTASSIUM CHLORIDE 20 MEQ ER TABLET 40 MEQ PO (04:33)
[2024-11-18 04:35] VITALS: BP 140/83; PULSE 84; RESP 15; O2SAT 98
[2024-11-18 04:42] LABS: Influenza A QL RT-PCR Negative (Negative); Influenza B QL RT-PCR Negative (Negative); RSV RNA, RT-PCR Negative (Negative); SARS-CoV-2 RNA PCR Negative (Negative)
[2024-11-18 04:42] LABS: Glucose Point of Care 202 mg/dl (65-105)
[2024-11-18 05:36] VITALS: BP 124/79; PULSE 73; RESP 18; O2SAT 97
== END 2024-11-18 05:46 | disposition home or self-care (01) ==
PROVIDERS: Emergency Provider Physician Assistant
DX: E10.65 Type 1 diabetes mellitus with hyperglycemia (principal); Z79.4 Long term (current) use of insulin; T38.3X6A Underdosing of insulin and oral hypoglycemic [antidiabetic] drugs, initial encounter; Z91.128 Patient's intentional underdosing of medication regimen for other reason
CPT/HCPCS: 36415; 80053; 81003; 82948; 83735; 85025; 85055; 87637; 96361; 96374; 99284; A9270; J1815; J7120

== ENCOUNTER 2025-03-02 20:58 | Emergency (ER) | payer OTHER, SELFPAY ==
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
--- NOTE | ~2025-03-02 | CT_ITS ---
2Noncontrast CT scan of the cervical spine Technique: Multiple contiguous axial [address] images of the cervical spine were obtained and rec onstructed in 2D sagittal and coronal planes on the acquisition scanner. Dose reduction technique was used on this scan by utilizing automated exposure control, adjustment of the mA and/or kV according to patient size. The dose-length product (DLP) was 497.99 mGy-cm. Clinical History: Pain Findings: No fractures or dislocations. Unremarkable visualized bony structures. The intervertebral disc spaces are preserved. No prevertebral soft tissue swelling. Impression: No fracture or subluxation of the cervical spine. Reviewed, dictated and finalized at location M. Impression: No fracture or subluxation of the cervical spine.
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
--- OUTSIDE RECORDS SUMMARY | 2025-03-02 21:00 | XMS_ITS | Patient Health Record ---
Author Organization [facility] Address [address] [address] Care Team Providers Care Billet Driller Name Role Phone Cash Ambriz Primary Care Provider Rishi Ag Unavailable [phone] Reason For Referral No Information Plan Of Treatment No Information
[2025-03-02 22:25] VITALS: BP 109/86; PULSE 101; RESP 16; TEMP 36.8; O2SAT 100
[2025-03-03 00:24] VITALS: BP 144/129; PULSE 84; RESP 14; TEMP 36.6; O2SAT 98
[2025-03-03 02:46] VITALS: BP 125/70; PULSE 71; RESP 16; TEMP 37.1; O2SAT 99
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
[2025-03-03 05:02] VITALS: BP 150/89; PULSE 64; RESP 12; O2SAT 98
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
--- OUTSIDE RECORDS SUMMARY | 2025-03-03 05:09 | XMS_ITS | Patient Health Record ---
Author Organization [facility] Address [address] [address] Care Team Providers Care Tunnel Drier Operator Name Role Phone Cash Ambriz Primary Care Provider Rishi Ag Unavailable [phone] Reason For Referral No Information Plan Of Treatment No Information
[2025-03-03] MEDS: HYDROcodone/acetaminophen (*CRX) 5-325 MG TABLET 1 TAB PO (05:42)
[2025-03-03] MEDS: KETOROLAC 30 MG/ML VIAL (*BKC) 15 MG IM (06:21)
[2025-03-03 06:45] LABS: Add Urine Microscopic? NO; Appearance Urine Clear (Clear); Glucose Urine UA 3+ mg/dL (Negative); Leukocyte Esterase Ur Negative LEU/UL (Negative); Nitrate Urine Negative (Negative); Specific Grav Ur 1.036 (1.001-1.035)
[2025-03-03 07:05] LABS: Cannabinoid Screen Urine Negative (Negative)
[2025-03-03 07:19] VITALS: BP 125/57; PULSE 61; RESP 15; O2SAT 96
== END 2025-03-03 07:20 | disposition home or self-care (01) ==
PROVIDERS: Emergency Provider Student in an Organized Health Care Education/Training Program
DX: S39.012A Strain of muscle, fascia and tendon of lower back, initial encounter (principal); E11.69 Type 2 diabetes mellitus with other specified complication; R82.4 Acetonuria; R81 Glycosuria; Z79.84 Long term (current) use of oral hypoglycemic drugs; V49.40XA Driver injured in collision with unspecified motor vehicles in traffic accident, initial encounter
CPT/HCPCS: 70450; 71250; 72125; 72128; 72131; 74176; 80307; 81003; 96372; 99284; A9270; J1885

== ENCOUNTER 2025-07-11 20:42 | Emergency (ER) | payer SELFPAY ==
[2025-07-11 20:43] VITALS: BP 139/93; PULSE 110; RESP 18; TEMP 36.9; O2SAT 98
--- OUTSIDE RECORDS SUMMARY | 2025-07-11 20:44 | XMS_ITS | Patient Health Record ---
Author Organization [facility] Address [address] [address] Care Team Providers Care Dredge Pump Operator Name Role Phone Cash Ambriz Primary Care Provider Rishi Ag Unavailable [phone] Reason For Referral No Information Plan Of Treatment No Information
--- OUTSIDE RECORDS SUMMARY | 2025-07-11 20:44 | XMS_ITS | Data Portability ---
Author Organization [facility] Address [address] [place] [address] Assessment No assessment recorded. Plan of Treatment [...] Their Choice, 21:06:58 lipid panel, serum 2023 024 [facility] (Centralized Electronic Ordering - All Locations), Patient Can Go To The Location Of Their Choice, 21:06:58 HbA1c (hemoglobi n A1c), blood 2023 024 [facility] (Centralized Electronic Ordering - All Locations), Patient Can Go To The Location Of Their Choice, 21:06:59 Referral registered dietitian referral - new diagnosis type 1 diabetes [address] [facility] (Lab), [address] [place], [address], 08:56:08 endocrinol ogy referral 2023 024 [facility] , [address], [facility] [address], [place], [address], 16:21:53 Procedures None recorded. Surgeries None recorded. Imaging None recorded. Medication Orders Novolog FlexPen U-100 Insulin aspart 100 unit/mL (3 mL) subcutaneo us 2023 024 [id number], [address] [place], [address], 13:09:26 Lantus Solostar U-100 Insulin 100 unit/mL (3 mL) subcutaneo us pen 2023 024 [id number], [address] [place], [address], 15:07:39 Patient TargetsNo targets recorded. Patient Instructions Encounter Date Encounter Id Patient Instructions Last Modified By Organization Details Last Modified Time 12/31/2023 [id number] A healthy lifestyle: care instructions Not available 12/31/2023 14:39:01 Discussed dietar y and lifestyle modifications in great detail. Educated on pathophysiology, sequelae, monitoring and treatment in detail. Pt's questions answered. Patient was given education packet and instructed to call/rtc with any questions. Keep follow up apt. Not available 01/07/2024 09:05:35 01/07/2024 [id number] A healthy lifestyle: care instructions Not available [...] 9 Not Available [facility] [address] [place], [address], 01/10/2024 21:06:58 12/31/19 24 01/01/2024 LIPID PANEL triglyceride s 226 mg/dL 0-149 above high normal Not Available [facility] [address] [place], [address], 01/10/2024 21:06:58 12/31/19 24 01/01/2024 LIPID PANEL HDL cholesterol 29 mg/dL >39 below low normal Not Available [facility] [address] [place], [address], 01/10/2024 21:06:58 12/31/19 24 01/01/2024 LIPID PANEL VLDL cholesterol irma 40 mg/dL 5-40 Not Available [facility] [address] [place], [address], 01/10/2024 21:06:58 12/31/19 24 01/01/2024 LIPID PANEL LDL chol calc (nih) 117 mg/dL 0-99 above high normal Not Available [facility] [address] [place], [address], 01/10/2024 21:06:58 12/31/19 24 01/01/2024 COMP. METAB OLIC PANEL (14) glucose 308 mg/dL 70-99 above high normal Not Available [facility] [address] [place], [address], 01/10/2024 21:06:58 12/31/19 24 01/01/2024 COMP. METAB OLIC PANEL (14) BUN 12 mg/dL 6-20 Not Available [facility] [address] [place], [address], 01/10/2024 21:06:58 12/31/19 24 01/01/2024 COMP. METAB OLIC PANEL (14) creatinine 0.98 mg/dL 0.76-1 .27 Not Available [facility] [address] [place], [address], 01/10/2024 21:06:58 12/31/19 24 01/01/2024 COMP. METAB OLIC PANEL (14) eGFR 113 mL/mi n/1.7 3 >59 Not Available [facility] [address] [place], [address], 01/10/2024 21:06:58 12/31/19 24 01/01/2024 COMP. METAB OLIC PANEL (14) BUN/creatini ne ratio 12 9-20 Not Available [facility] [address] [place], [address], 01/10/2024 21:06:58 12/31/19 24 01/01/2024 COMP. METAB OLIC PANEL (14) sodium 138 mmol/ L 134-14 4 Not Available [facility] [address] [place], [address], 01/10/2024 21:06:58 12/31/19 24 01/01/2024 COMP. METAB OLIC PANEL (14) potassium 4.3 mmol/ L 3.5-5. 2 Not Available [facility] [address] [place], [address], 01/10/2024 21:06:58 12/31/19 24 01/01/2024 COMP. METAB OLIC PANEL (14) chloride 99 mmol/ L 96-106 Not Available [facility] [address] [place], [address], 01/10/2024 21:06:58 12/31/19 24 01/01/2024 COMP. METAB OLIC PANEL (14) carbon dioxide, total 23 mmol/ L 20-29 Not Available [facility] [address] [place], [address], 01/10/2024 21:06:58 12/31/19 24 01/01/2024 COMP. METAB OLIC PANEL (14) calcium 9.3 mg/dL 8.7-10 .2 Not Available [facility] [address] [place], [address], 01/10/2024 21:06:58 12/31/19 24 01/01/2024 COMP. METAB OLIC PANEL (14) protein, total 6.4 g/dL 6.0-8. 5 Not Available [facility] [address] [place], [address], 01/10/2024 21:06:58 12/31/19 24 01/01/2024 COMP. METAB OLIC PANEL (14) albumin 4.5 g/dL 4.3-5. 2 Not Available [facility] [address] [place], [address], 01/10/2024 21:06:58 12/31/19 24 01/01/2024 COMP. METAB OLIC PANEL (14) globulin, total 1.9 g/dL 1.5-4. 5 Not Available [facility] [address] [place], [address], 01/10/2024 21:06:58 12/31/19 24 01/01/2024 COMP. METAB OLIC PANEL (14) A/G ratio 2.4 1.2-2. 2 above high normal Not Available [facility] [address] [place], [address], 01/10/2024 21:06:58 12/31/19 24 01/01/2024 COMP. METAB OLIC PANEL (14) bilirubin, total 0.6 mg/dL 0.0-1. 2 Not Available [facility] [address] [place], [address], 01/10/2024 21:06:58 12/31/19 24 01/01/2024 COMP. METAB OLIC PANEL (14) alkaline phosphatase 167 IU/L 51-125 above high normal Not Available [facility] [address] [place], [address], 01/10/2024 21:06:58 12/31/19 24 01/01/2024 COMP. METAB OLIC PANEL (14) AST (SGOT) 13 IU/L 0-40 Not Available [facility] [address] [place], [address], 01/10/2024 21:06:58 12/31/19 24 01/01/2024 COMP. METAB OLIC PANEL (14) ALT (SGPT) 18 IU/L 0-44 Not Available [facility] [address] [place], [address], 01/10/2024 21:06:58 12/31/19 24 01/03/2024 DIABE KENA [...] parrish et al. PNAS. 2007; 104(4 3):17 [phone]. Not Available [facility] [address] [place] [address], [address], 01/10/2024 21:06:59 12/31/19 24 01/07/2024 DIABE KENA AUTOI MMUNE PROFI LE anti casey 65 antibodies 17 U/mL above high normal Refer ence Range : <5.0 Negat donny > or = 5.0 Posit donny Not Available [facility] [address] [place] [address], [address], 01/10/2024 21:06:59 12/31/19 24 01/08/2024 DIABE KENA AUTOI MMUNE PROFI LE insulin antibodies <5.0 This test is also known as insul in autoa ntibo dy or IAA. This test was devel oped and its perfo rmanc e abdirahman cteri stics deter mined by [facility]. It has not been clear ed or appro santosh by the Food and Drug Admin istra tion. Refer ence Range : <5.0 Negat donny > or = 5.0 Posit donny Not Available [facility] [address] [place], [address], 01/10/2024 21:06:59 12/31/19 24 01/09/2024 DIABE KENA AUTOI MMUNE PROFI LE znt8 antibodies 374 U/mL above high normal Refer ence Range : All Ages: <15 Negat donny > or =15 Posit donny Not Available [facility] [address] [place] [address], [address], 01/10/2024 21:06:59 12/31/19 24 01/10/2024 DIABE KENA AUTOI MMUNE PROFI LE ia-2 autoantibodi es <7.5 U/mL Refer ence Range : <7.5 Negat donny > or = 7.5 Posit donny Not Available [facility] [address] [place], [address], 01/10/2024 21:06:59 12/31/19 24 01/01/2024 HEMOG LOBIN A1C hemoglobin A1C 12.1 % 4.8-5. 6 above high normal Predi abete s: 5.7 - 6.4 Diabe kena: >6.4 Glyce emilee contr ol for adult s with diabe kena: <7.0 Not Available [facility] [address] [place], [address], 01/10/2024 21:06:59 01/07/20 24 01/08/2024 ALBUM IN/CR EAT RATIO , RANDO M UR creatinine, urine 70.3 mg/dL notest ab. Not Available [facility] ([facility]) [address] [place], [address], 01/08/2024 08:36:51 01/07/2001/08/2024 ALBUM IN/CR EAT RATIO , RANDO M UR albumin, urine <3.0 ug/mL notest ab. Not Available [facility] ([facility]) [address] [place], [address], 01/08/2024 08:36:51 01/07/2001/08/2024 ALBUM IN/CR EAT RATIO , RANDO M UR alb/creat ratio <4 Gifty l: 0 - 29 Moder ately incre ased: 30 - 300 Sever anjelica incre ased: >300 Not Available [facility] ([facility]) [address] [place], [address], 01/08/2024 08:36:51 Result Notes None recorded. Problems Name Problem SNOMED Code Status Onset Date Resolution Date Notes Provider Name and Address Organization Details Recorded Time Type 1 diabetes mellitus 32710161 Active 024 Cash Ambriz PA-C Attn: Accounting ,[address] [facility], [place], [address] , [facility] 4 08:53:14 Problem Notes None recorded. Medical [...] mass index (BMI) Body mass index (BMI) [Percentile] Per age and sex Body weight Oxygen saturation Heart rate Respiratory rate Systolic And Diastolic Provider Name and Address Organization Details Last Updated DateTime 4 177.8 cm 26.9 kg/m2 84 % 72159.8 2 g 98 % 94 /min 18 /min 124/70 mm[Hg] Casandra Best MA PA - [facility] 4 14:24:02 Date Recorded Body height Body mass index (BMI) [Percentile] Per age and sex Body mass index (BMI) Body weight Oxygen saturation Heart rate Respiratory rate Systolic And Diastolic Provider Name and Address Organization Details Last Updated DateTime 4 177.8 cm 84 % 27 kg/m2 53626.8 2 g 98 % 82 /min 16 /min 126/72 mm[Hg] Casandra Best MA PA - [facility] 14:38:54 Social History Question Answer Notes LastModified by Organizat ion Details LastModified Time Tobacco Smoking Status Current Every Day Smoker Casandra Best MA null, PA - [facility] 12/31/2023 14:26:10 Do You Have An Advance Directive? No Information n ot available 12/31/2023 Are You Blind Or Do You Have Difficulty Seeing? No Information n ot available 12/31/2023 What Is Your Level Of Caffeine Consumption? Moderate Information not available 12/31/2023 In The 14 Days Before Symptom Onset, Have You Had Close Contact With A Laboratory-confirm ed COVID-19 While That Case Was Ill? No Information n ot available 12/31/2023 In The 14 Days Before Symptom Onset, Have You Had Close Contact With A Person Who Is Under Investigation For COVID-19 While That Person Was Ill? No Information not available 12/31/2023 Have You Been To An Area Known To Be High Risk For COVID-19? No Information not available 12/31/2023 Are You Deaf Or Do You Have Serious Difficulty Hearing? No Information not available 12/31/2023 What Type Of Diet Are You Following? REGULAR Information n ot available 12/31/2023 Are There Any Guns Present [...] Information no t available 12/31/2023 Do You Use Sunscreen Routinely? Yes Information not available 12/31/2023 Has Tobacco Cessation Counseling Been Provided? Yes Information not available 12/31/2023 On What Date Was Tobacco Cessation Counseling Provided? 01/07/2024 Information not available 01/07/2024 How Many Years Have You Used E-cigarettes Or Vape? 2 Information not available 12/31/2023 Sex: Unknown Functional Status Question Answer Note LastModified by Organizat ion Details LastModified Time Do you use any illicit or recreational drugs? No Information not available 12/31/2023 Do you or have you ever used any other forms of tobacco or nicotine? Yes Information not available 12/31/2023 What is your level of alcohol consumption? Occasional Information not available 12/31/2023 Do you or have you ever used smokeless tobacco? Never used smokeless tobacco Information not available 12/31/2023 Are you currently employed? Yes Information not available 12/31/2023 Are you able to care for yourself independently? Yes Information not available 12/31/2023 Do you or have you ever used e-cigarettes or vape? Current user of electronic cigarettes Information not available 12/31/2023 What is your exercise level? Occasional Information not available 12/31/2023 Mental Status Question Answer Note LastModified by Organization D etails LastModified Time Do you feel stressed (tense, restless, nervous, or anxious, or unable to sleep at night)? [id number] Information not available 12/31/2023 Family History Relationship Description Onset Age of this Age Resolved Age Notes LastModified by Organization Details LastModified Time Father No current problems or disability Not available 09/2023 14:25:12 Mother No current problems or disability Not available 09/2023 14:25:12 Medical History Condition Response Coronary Artery Disease N Other N Atrial Fibrillation N High Blood Pressure N Thyroid Problems N Kidney or Bladder Problems N GI Problems N Depression N COPD N Blood Clots N Eating Disorder N Skin Problems N Anemia N Heart Attack (VT) N Anxiety Disorder N Diabetes Y Muscle, [...] Diagnosis SNOMED-CT Code Diagnosis ICD10 Code Diagnosis IMO Codes Diagnosis Note [id number] TEMITOPE Falk [address] [place] [address] 12/31/2023 14:10:33 12/31/2023 15:10:23 Diabetes mellitus 01900148 E11.65 12/31/23: new patient, ED follow up: [...] and mother comfortabl e with plan. Overweight 413744227 E66 .3 Depression screening 171 429200 Z13.31 [id number] TEMITOPE Falk [address] [place] [address] 01/07/2024 14:32:59 01/07/2024 15:12:33 Overweight 052748868 E66.3 Smoker 16768933 F17.200 Diabetes mellitus 372347 09 E11.65 Depression screening 171 530085 Z13.31 Type 1 karlene betes mellitus 99692665 E10.65 01/11/24: >>GAD65 and ZNT8 positive, with [...] None Recorded Advance Directives Directive N: Payers Insurance Date Sequence Insurance Name Policy Number Policy Nye Covered Member ID Nye Member ID Guarantor Name 06/27/2024 1 [facility] () Patrick Alvarez [id number] Dina Alvarez 01/02/2024 1 [employer] - ( SUPPLEMENT) Patrick Alvarez [id number] Dina Alvarez 01/22/2024 2 *SELF PAY* Jenaro Alvarez Notes Date Note Type Note Provider Name and Address Organization Details Recorded Time 12/31/2023 text/html ROS as noted in the HPI Pt presents to establish care and for [...] seizure. Cash Ambriz PA-C Attn: Accounting,[address] [facility], [place], [address], [facility] 01/07/2024 09:06:22 01/07/2024 text/html ROS as noted in the HPI Pt presents for one week follow up of diabetes. DM1 ab panel still pending. taking 10 units basal insulin qD without complication. hyperglycemia persists. has been compliant with diet. denies symptoms at this time. Pt denies fever, chills, headaches, syncope, chest pain, shortness of breath, abdominal pain, NVD, joint problems, skin problems. Cash Ambriz PA-C Attn: Accounting,[address] [facility], [place], [address], [facility] 01/11/2024 13:25:33
[2025-07-11] MEDS: ACETAMINOPHEN 500 MG TABLET 1000 MG PO (21:31)
[2025-07-11] MEDS: SULFAMETHOXAZOLE/TRIMETHOPRIM 800/160 MG DS TABLET 1 TAB PO (21:31)
[2025-07-11] MEDS: KETOROLAC (*BKC) 60 MG/2 ML VIAL IM (21:31)
--- NOTE | 2025-07-12 01:59 | ED_ITS ---
HPI - General Adult General Chief complaint: Skin/Abscess/Foreign Body Stated complaint: CYST TO CHEST Time Seen by Provider: 07/11/25 20:49 History of Present Illness HPI narrative: 19-year-old male presenting with concerns for a right sided skin infection surrounding his areola. Patient states it started off as a small bump 4 days ago and has progressed since then. Reports it hurts when anything touches it or if he lays on that side. Denies fevers/chills, chest pain/shortness of breath, nipple changes, or trauma. History of type 1 diabetes. Related Data Allergies Allergy/AdvReac Type Severity Reaction Status Date / Time No Known Allergies Allergy Verified 07/11/25 20:48 Review of Systems Review of Systems: All systems reviewed & are unremarkable except as noted in HPI and below PMFSH Past Medical History Medical History Insulin dependent diabetes mellitus Exam Narrative: GENERAL: No acute distress. HEAD: Normocephalic, atraumatic. EYES: PERRLA and EOMI. ENT: Nares clear, no rhinorrhea or epistaxis. Mucous membranes moist. Oropharynx without tonsillar hypertrophy exudate or other lesions. Bilateral TMs pearly guallpa non-bulging NECK: Supple. No adenopathy or masses. No carotid bruits or JVD CHEST: Clear to auscultation. No respiratory distress. No wheezes rales or rhonchi. Approximately 3 x 3cm area of erythema and induration surrounding the nipple. No drainage or fluctuance. No nipple retraction, discharge, or skin changes. HEART: Regular rate and rhythm. No murmur heard. Normal peripheral pulses. ABDOMEN: Soft, nontender, nondistended, normal active bowel sounds. EXTREMITIES: Normal range of motion. No edema. SKIN: Warm, dry, no rash. NEURO: No focal deficits. Alert and oriented x3. PSYCH: Normal mood and affect Course Vital Signs Vital signs: Vital Signs Temperature 98.4 F 07/11/25 20:43 Pulse Rate 110 H 07/11/25 20:43 Respiratory Rate 18 07/11/25 20:43 Blood Pressure 139/93 H 07/11/25 20:43 Pulse Oximetry 98 07/11/25 20:43 Oxygen Delivery Room Air 07/11/25 20:43 Temperature 98.4 F 07/11/25 20:43 Pulse Rate 110 H 07/11/25 20:43 Respiratory Rate 18 07/11/25 20:43 Blood Pressure 139/93 H 07/11/25 20:43 Pulse Oximetry 98 07/11/25 20:43 Oxygen Delivery Room Air 07/11/25 20:43 MDM MDM Narrative Medical decision making narrative: 19-year-old male presenting with concerns for a right sided skin infection surrounding his areola. Patient states it started off as a small bump 4 days ago and has progressed since then. Reports it hurts when anything touches it or if he lays on that side. Denies fevers/chills, chest pain/shortness of breath, nipple changes, or trauma. History of type 1 diabetes. Upon my initial assessment patient appears nontoxic with stable vitals including no fevers. Physical exam demonstrates approximately 3 x 3cm area of erythema and induration surrounding the nipple consistent with cellulitis. No drainage or fluctuance. No nipple retraction, discharge, or skin changes. Administered Tylenol, Toradol, and 1st dose of Bactrim. Patient reports improvement in pain. Plan to discharge home with outpatient antibiotic and recommendation to follow up with PCP. Given reasons to return. Differential Diagnosis Differential Diagnosis: Differential diagnostic considerations for skin/abscess/foreign body issues include abscess of skin or subcutaneous tissue, viral exanthem, dermatophytosis, urticaria, herpes zoster, allergic reaction to drug, cellulitis, eczema, insect bites, impetigo, contact dermatitis, vasculitis. Medical Records I have reviewed the following patient records and this information was taken into consideration when formulating the assessment and plan.: previous labs and previous ER visits Discharge Plan Discharge Clinical Impression: Abscess of skin or subcutaneous tissue, Cellulitis Patient Disposition: Home Condition: Stable Instructions: Antibiotic Form, Cellulitis (ED), Abscess (ED) Additional Instructions: Return if symptoms worsen or concerns: any increase in redness, swelling, pain or fever over 101 Take antibiotics as directed. Warm compresses 3 times a day for 30 minutes each. Take anti-inflammatories (Aleve, Ibuprofen, Naproxen, etc) and Tylenol as needed for pain. Follow up with primary care in the next 2-3 days for re-evaluation. Patient Language: Tamazight Prescriptions: New sulfamethoxazole-trimethoprim [Bactrim DS] 800-160 mg tablet 1 tablet PO Q12H Qty: 13 0RF No Action lidocaine 4 % adhesive patch,medicated 1 patch topical DAILY PRN (Reason: pain) Qty: 5 0RF methocarbamol 750 mg tablet 750 mg PO HS Qty: 7 0RF ibuprofen 600 mg tablet 600 mg PO TID PRN (Reason: pain) Qty: 30 0RF acetaminophen 500 mg capsule 1,000 mg PO Q6H PRN (Reason: pain) Qty: 30 0RF metformin 500 mg tablet 500 mg PO BID Qty: 60 0RF Follow-up/Referrals: PHYSICIAN,STAFFING COORDINATOR [Primary Care Provider, Internal Medicine]
== END 2025-07-11 21:38 | disposition home or self-care (01) ==
DX: N61.1 Abscess of the breast and nipple (principal); E11.9 Type 2 diabetes mellitus without complications; Z79.84 Long term (current) use of oral hypoglycemic drugs
CPT/HCPCS: 96372; 99283; A9270; J1885

== ENCOUNTER 2025-07-18 21:02 | Emergency (ER) | payer SELFPAY ==
[2025-07-18 21:04] VITALS: BP 160/83; PULSE 93; RESP 18; TEMP 36.3; O2SAT 99
--- NOTE | 2025-07-18 22:47 | ED.GENADULT ---
HPI - General Adult General Chief complaint: Skin/Abscess/Foreign Body Stated complaint: cyst popped on chest Time Seen by Provider: 07/18/25 22:33 History of Present Illness HPI narrative: 19-year-old male with history of diabetes presents emergency department for right nipple infection. Patient is currently on Bactrim, states that the area infection ?popped? and had some purulent bleeding wanted to get checked. He denies any systemic symptoms of fevers or chills denies any increase in his insulin requirement. Denies any lightheadedness shortness of breath. States he has about 5 days left of his Bactrim. Related Data Allergies Allergy/AdvReac Type Severity Reaction Status Date / Time No Known Allergies Allergy Verified 07/18/25 21:08 Review of Systems Review of Systems: All systems reviewed & are unremarkable except as noted in HPI and below PMFSH Past Medical History Medical History Insulin dependent diabetes mellitus Exam Narrative: EXAMINATION OF ORGAN SYSTEMS/BODY AREAS: Constitutional: Vital signs per nursing GENERAL:No acute distress, non-toxic appearing. HEAD: Normal with no signs of head trauma. EYES: EOMI, conjunctiva normal ENT: Hearing grossly intact LUNGS: Nonlabored breathing. HEART: Regular rate and rhythm EXT: Normal range of motion SKIN: The right nipple has an area of erythema surrounding it approximately 5 cm in diameter. It is minimally tender. Otherwise there is no obvious abscess or fluid collection. No surrounding lymphadenopathy. No duskiness. NEURO: Alert. No gross focal sensory or strength deficits. PSYCH: Normal affect Course Vital Signs Vital signs: Vital Signs Temperature 36.3 C L 07/18/25 21:04 Pulse Rate 93 07/18/25 21:04 Respiratory Rate 18 07/18/25 21:04 Blood Pressure 160/83 H 07/18/25 21:04 Pulse Oximetry 99 07/18/25 21:04 Oxygen Delivery Room Air 07/18/25 21:04 Temperature 36.9 C 07/18/25 23:28 Pulse Rate 93 07/18/25 23:28 Respiratory Rate 20 07/18/25 23:28 Blood Pressure 121/68 07/18/25 23:28 Pulse Oximetry 98 07/18/25 23:28 Oxygen Delivery Room Air 07/18/25 21:04 MDM Differential Diagnosis Differential Diagnosis: 19-year-old male presents with a wound check. States that the area is actually improving in terms of size, he is without any systemic symptoms he is already on antibiotics as appropriate vital signs. I do not have any concern for failure of outpatient antibiotics at this time ir systemic infection. Given his take 1 diabetes, still somewhat erythematous and cellulitic I do think he should take a full 7 more days of antibiotics. He is unsure how many has at home so I will write him for a 7 day course of Bactrim. Otherwise return precautions discussion of her fevers chills lightheadedness or any other concerning symptoms return for immediate re-evaluation. Otherwise all questions answered discharged in stable condition Medical Records I have reviewed the following patient records and this information was taken into consideration when formulating the assessment and plan.: previous labs and previous ER visits Discharge Plan Discharge Clinical Impression: Cellulitis Patient Disposition: Home Condition: Stable Instructions: Antibiotic Form, Cellulitis (ED), Abscess (ED) Patient Language: Kuwaiti Prescriptions: New sulfamethoxazole-trimethoprim [Bactrim] 400-80 mg tablet 1 tablet PO HS Qty: 14 0RF No Action lidocaine 4 % adhesive patch,medicated 1 patch topical DAILY PRN (Reason: pain) Qty: 5 0RF methocarbamol 750 mg tablet 750 mg PO HS Qty: 7 0RF ibuprofen 600 mg tablet 600 mg PO TID PRN (Reason: pain) Qty: 30 0RF acetaminophen 500 mg capsule 1,000 mg PO Q6H PRN (Reason: pain) Qty: 30 0RF sulfamethoxazole-trimethoprim [Bactrim DS] 800-160 mg tablet 1 tablet PO Q12H Qty: 13 0RF metformin 500 mg tablet 500 mg PO BID Qty: 60 0RF Follow-up/Referrals: PHYSICIAN,BARREL ASSEMBLY INSPECTOR [Primary Care Provider, Internal Medicine] Time of Disposition: 23:17
[2025-07-18 23:07] VITALS: BP 126/65; PULSE 87; RESP 16; TEMP 36.9; O2SAT 97
[2025-07-18 23:28] VITALS: BP 121/68; PULSE 93; RESP 20; TEMP 36.9; O2SAT 98
== END 2025-07-18 23:29 | disposition home or self-care (01) ==
PROVIDERS: Emergency Provider Emergency Medicine
DX: N61.0 Mastitis without abscess (principal); E10.9 Type 1 diabetes mellitus without complications; Z79.84 Long term (current) use of oral hypoglycemic drugs
CPT/HCPCS: 99283